=== PATIENT | female | born 1955 | race Caucasian/White ===

== ENCOUNTER → 2016-10-27 | Outpatient (CLI) | payer BC | END | disposition home or self-care (01) | LOC: C.LAB1850 14:01 | PROVIDERS: ATTEND Obstetrics & Gynecology | DX: D39.10 Neoplasm of uncertain behavior of unspecified ovary (principal) ==

== ENCOUNTER → 2017-04-04 | Outpatient (CLI) | payer BC ==
--- NOTE | 2017-04-04 19:59 | DIAGNOSTIC IMAGING REPORT ---
LEFT POPLITEAL FOSSA ULTRASOUND CLINICAL HISTORY: Enlarged popliteal mass. COMPARISON STUDY: None. FINDINGS: There is a large cystic lesion within the left popliteal fossa which measures 7.7 x 5.2 x 3.5 cm. This contains internal echoes and a thin wall. This involves the subcutaneous and deep soft tissues. No definite color flow. IMPRESSION: A 7.7 x 5.2 a 3.5 cm slightly complex cystic lesion within the left popliteal fossa. This favors a complex popliteal cyst. Electronically signed by: Bruce Sánchez M.D. 04/04/2017 7:58 PM Dictated Date/Time: 04/04/2017 7:56 PM
--- NOTE | 2017-04-04 20:05 | DIAGNOSTIC IMAGING REPORT ---
LEFT KNEE 2 VIEWS HISTORY: Left posterior knee the lump COMPARISON: None. FINDINGS: Mild osteoarthritis within the medial compartment of the left knee. No fracture or dislocation. No significant knee effusion. A 9.3 x 4.4 cm oval-shaped well-circumscribed lesion within the popliteal fossa. No radiopaque foreign bodies. IMPRESSION: A 9.3 x 4.4 cm oval-shaped well-circumscribed lesion within the popliteal fossa. This could represent a nonspecific popliteal cyst or soft tissue mass. Electronically signed by: Bruce Sánchez M.D. 04/04/2017 8:04 PM Dictated Date/Time: 04/04/2017 8:02 PM
== END | disposition home or self-care (01) ==
LOC: C.ULTR 19:11
PROVIDERS: ATTEND Family Medicine
DX: M71.20 Synovial cyst of popliteal space [Baker], unspecified knee (principal)

== ENCOUNTER → 2017-08-01 | Outpatient (CLI) | payer BC | END | disposition home or self-care (01) | LOC: C.RDSM 08:00 | PROVIDERS: ATTEND Family Medicine | DX: M79.672 Pain in left foot (principal) ==

== ENCOUNTER → 2017-09-17 | Outpatient (CLI) | payer BC ==
--- NOTE | 2017-09-17 11:10 | DIAGNOSTIC IMAGING REPORT ---
L LOWER EXT JOINT WITHOUT CLINICAL HISTORY: LEFT HEEL PAIN pain TECHNIQUE: Multi axial MRI acquisition COMPARISON STUDY: None FINDINGS: Small heel spur. Signal characteristics of the osseous structures are unremarkable. There is no bone marrow replacing process. There is no evidence for bone marrow edematous change. Subtalar joint is unremarkable. All major ligamentous and tendinous structures are intact. Ankle mortise is aligned anatomically. Structures the plantar region are unremarkable. IMPRESSION: 1. Small heel spur. 2. Examination of left ankle is otherwise negative. 3. No evidence for fracture, tendinous abnormality, or bone marrow replacing process. The above report was generated using voice recognition software. It may contain grammatical, syntax or spelling errors. Electronically signed by: Kelechi Frias M.D. 09/17/2017 11:09 AM Dictated Date/Time: 09/17/2017 11:06 AM
== END | disposition home or self-care (01) ==
LOC: C.MRI 09:55
PROVIDERS: ATTEND Family Medicine
DX: M79.672 Pain in left foot (principal)

== ENCOUNTER → 2017-10-16 | Outpatient (CLI) | payer BC ==
--- NOTE | 2017-10-16 14:28 | MAMMOGRAPHY REPORT ---
BILATERAL DIGITAL SCREENING MAMMOGRAM TOMOSYNTHESIS WITH CAD: 10/16/2017 CLINICAL HISTORY: Routine screening. Patient has no complaints. TECHNIQUE: Breast tomosynthesis in addition to standard 2D mammography was performed. Current study was also evaluated with a Computer Aided Detection (CAD) system. COMPARISON: Comparison is made to exams dated: 09/11/2016 mammogram, 09/06/2015 mammogram, 09/01/2014 mammogram, 08/08/2013 mammogram, 07/31/2012 mammogram, and 07/11/2011 mammogram - [facility]. BREAST COMPOSITION: The tissue of both breasts is heterogeneously dense, which may obscure small mas ses. FINDINGS: The parenchymal pattern is unchanged. No developing mass, architectural distortion or clus ter of suspicious microcalcifications is seen in either breast. IMPRESSION: ACR BI-RADS CATEGORY 2: BENIGN There is no mammographic evidence of malignancy. A 1 year screening mammogram is recommended. The pa tient will receive written notification of the results. Approximately 10% of breast cancers are not detected with mammography. A negative mammographic report should not delay biopsy if a clinically suggestive mass is present. Rosalba Garcia M.D. ay/:10/16/2017 13:54:56 Window Machine Operator: Sandy REID(Magdaleno)(Alin), [facility] letter sent: Normal 1/2 BI-RADS Code: ACR BI-RADS Category 2: Benign
== END | disposition home or self-care (01) ==
LOC: C.MAMM 12:31
PROVIDERS: ATTEND Obstetrics & Gynecology
DX: Z12.31 Encounter for screening mammogram for malignant neoplasm of breast (principal)